=== PATIENT | male | born 1965 ===

== ENCOUNTER 2019-05-29 13:44 | Outpatient (CLI) | payer OTHER, SELFPAY ==
--- NOTE | ~2019-05-29 | XR_ITS ---
EXAMINATION: XR lumbar spine 2-3V DATE: 05/29/2019 14:04 INDICATION: Left-sided sciatica. TECHNIQUE: 3 views of lumbar spine were obtained. COMPARISON: None. FINDINGS: Bone alignment is normal. Vertebral body heights are normal. There are endplate osteophytes at T11-T12. There is mildly decreased disc height at T11-T12 and L3-L4. There is multilevel mild fac et joint osteoarthritis. IMPRESSION: 1. Mild lumbar and lower thoracic spondylosis. Reviewed, dictated and finalized at location A. ING AND BAKING OPERATOR
== END 2019-05-29 13:45 | disposition home or self-care (01) ==
PROVIDERS: PCP Internal Medicine; Visit Provider Internal Medicine
DX: N43.3 Hydrocele, unspecified (principal); M54.32 Sciatica, left side
CPT/HCPCS: 72100

== ENCOUNTER 2019-05-30 13:24 | Outpatient (CLI) | payer OTHER, SELFPAY ==
--- NOTE | ~2019-05-30 | US_ITS ---
US scrotum doppler INDICATION: Testicular swelling. TECHNIQUE: Testicular sonogram utilizing grayscale and color Doppler FINDINGS: The testes are normal in size and appearance. No focal lesions are seen. The right testes measures 4.3 x 2.3 x 2.2 cm centimeters, and the left testis measures 3 x 1.8 x 2 cm cm. There is nor mal vascular flow to both testes. There is a 5 mm extratesticular calcification on the right, likely benign. The epididymis is not clearly visualized on either side. There is a large right and moderate left hydroceles. There is a left varicocele measuring 2.6 mm grea test venous diameter. IMPRESSION: 1. Bilateral hydroceles, right greater than left. 2: Left varicocele. Reviewed, dictated and finalized at location B. CONE INSPECTOR
== END 2019-05-30 13:25 | disposition home or self-care (01) ==
LOC: CHSIMG 13:25
PROVIDERS: PCP Internal Medicine; Visit Provider Internal Medicine
DX: N43.3 Hydrocele, unspecified (principal); M54.32 Sciatica, left side
CPT/HCPCS: 76870; 93976

== ENCOUNTER 2019-10-23 14:49 | Outpatient (CLI) | payer OTHER, SELFPAY ==
--- NOTE | ~2019-10-23 | XR_ITS ---
EXAMINATION: XR elbow RT min 3V DATE: 10/23/2019 15:14 INDICATION: Right elbow bump. TECHNIQUE: 4 views of right elbow were obtained. COMPARISON: None. FINDINGS: Bone alignment is normal. No fracture. Joint spaces are well maintained. There is no elbow joint effusion. There is soft tissue swelling overlying the olecranon, consistent with bursitis. IMPRESSION: 1. Olecranon bursitis. Reviewed, dictated and finalized at location A. IMPRESSION: 1. Olecranon bursitis.
== END 2019-10-23 14:50 | disposition home or self-care (01) ==
LOC: CHSIMG 14:51
PROVIDERS: PCP Internal Medicine; Visit Provider Internal Medicine
DX: R22.31 Localized swelling, mass and lump, right upper limb (principal)
CPT/HCPCS: 73080

== ENCOUNTER 2020-07-27 10:56 | Outpatient (CLI) | payer OTHER, SELFPAY | END 2020-07-27 10:57 | disposition home or self-care (01) | LOC: CHSCOVIDVC 10:57 | PROVIDERS: PCP Internal Medicine | DX: Z23 Encounter for immunization (principal) | CPT/HCPCS: 0011A; 91301 ==

== ENCOUNTER 2020-08-24 10:57 | Outpatient (CLI) | payer OTHER, SELFPAY | END 2020-08-24 10:58 | disposition home or self-care (01) | LOC: CHSCOVIDVC 10:58 | PROVIDERS: PCP Internal Medicine | DX: Z23 Encounter for immunization (principal) | CPT/HCPCS: 0012A; 91301 ==

== ENCOUNTER 2020-12-10 08:22 | Outpatient (CLI) | payer OTHER, SELFPAY ==
--- NOTE | ~2020-12-10 | XR_ITS ---
XR knee LT min 4V 12/10/2020 08:50 INDICATION: Left knee pain PROCEDURE: 4 views left knee COMPARISON: No prior studies for comparison. FINDINGS: Fracture, dislocation or subluxation is not identified. Large amount of prepatellar soft ti ssue swelling. No foreign bodies are identified. IMPRESSION: 1: Prominent prepatellar soft tissue swelling. Consider bursitis in the appropriate clinical setting. Reviewed, dictated and finalized at location A. IMPRESSION: 1: Prominent prepatellar soft tissue swelling. Consider bursitis in the appropr iate clinical setting.
== END 2020-12-10 08:23 | disposition home or self-care (01) ==
LOC: CHSIMG 08:24
PROVIDERS: PCP Internal Medicine; Visit Provider Orthopaedic Surgery
DX: M25.562 Pain in left knee (principal)
CPT/HCPCS: 73564

== ENCOUNTER 2021-04-22 15:27 | Outpatient (CLI) | payer OTHER, SELFPAY ==
--- NOTE | ~2021-04-22 | XR_ITS ---
XR lumbar spine 2-3V 04/22/2021 15:40 Indication: Back pain Procedure: 3 views lumbar spine Comparison: 05/29/2019 Findings: Vertebral body heights are maintained. No significant disc narrowing. No fracture, subluxat ion or dislocation. No evidence for spondylolisthesis. Pedicles intact. Sacral foramen are symmetric. Impression: 1: No significant abnormality of the lumbar spine. Reviewed, dictated and finalized at location B. RNATIONAL RELATIONS PROFESSOR Impression: 1: No significant abnormality of the lumbar spine.
== END 2021-04-22 15:28 | disposition home or self-care (01) ==
LOC: CHSIMG 15:29
PROVIDERS: PCP Internal Medicine; Visit Provider Internal Medicine
DX: M54.9 Dorsalgia, unspecified (principal); R10.9 Unspecified abdominal pain
CPT/HCPCS: 72100

== ENCOUNTER 2021-05-27 10:15 | Outpatient (CLI) | payer OTHER, SELFPAY ==
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
== END 2021-05-27 10:16 | disposition home or self-care (01) ==
LOC: CHSIMG 10:17
PROVIDERS: PCP Internal Medicine; Visit Provider Internal Medicine
DX: R10.9 Unspecified abdominal pain (principal)
CPT/HCPCS: 74177; Q9967

== ENCOUNTER 2021-06-11 14:10 | Outpatient (CLI) | payer OTHER, SELFPAY ==
--- NOTE | ~2021-06-11 | US_ITS ---
US arterial ankle brachial ind INDICATION: Peripheral arterial disease TECHNIQUE: Segmental pressures and plethysmographic and Doppler waveforms of the brachial and lower e xtremity arteries were obtained. COMPARISON: None. FINDINGS: Right and left brachial artery pressures of 133 mm Hg and 123 mm Hg, respectively, are concordant (no rmal difference <= 30 mmHg). The right ankle-brachial index (ANGEL) is 1.09 (normal >= 0.9-1.0). The right great toe-brachial index (TBI) is 1.02 (normal >= 0.60). The left ANGEL is 1.06. The left TBI is 0.87. IMPRESSION: 1. Normal ankle-brachial indices. Reviewed, dictated and finalized at location B.
== END 2021-06-11 14:11 | disposition home or self-care (01) ==
LOC: CHSIMG 14:11
PROVIDERS: PCP Internal Medicine; Visit Provider Internal Medicine
DX: I73.9 Peripheral vascular disease, unspecified (principal)
CPT/HCPCS: 93922

== ENCOUNTER 2021-06-13 13:08 | Outpatient (CLI) | payer OTHER, SELFPAY ==
--- NOTE | ~2021-06-13 | US_ITS ---
EXAMINATION: US soft tissue groin LT DATE: 06/13/2021 13:29 INDICATION: Lump in the left groin TECHNIQUE: Multiple grayscale and Doppler ultrasound images of the region of the palpable abnormality at the left groin were obtained. COMPARISON: CT abdomen and pelvis dated 05/27/2021 FINDINGS/IMPRESSION: 2.9 x 1.0 x 0.3 cm left inguinal lymph node with prominent central fatty hilum superficial to the lef t common femoral artery and vein at the region of concern. No other abnormal masses or fluid collecti ons identified. No evident left inguinal hernia on the prior CT. Reviewed, dictated and finalized at location A.
== END 2021-06-13 13:09 | disposition home or self-care (01) ==
LOC: CHSIMG 13:10
PROVIDERS: PCP Internal Medicine; Visit Provider Internal Medicine
DX: R22.2 Localized swelling, mass and lump, trunk (principal)
CPT/HCPCS: 76882

== ENCOUNTER 2021-07-08 15:52 | Outpatient (CLI) | payer OTHER, SELFPAY ==
--- NOTE | ~2021-07-08 | XR_ITS ---
EXAMINATION: XR hip LT 2V w AP pelvis DATE: 07/08/2021 16:10 INDICATION: Left hip pain. TECHNIQUE: An anteroposterior view of the pelvis and 2 views of left hip were obtained. COMPARISON: None. FINDINGS: Bone alignment is normal. No fracture. There is mild osteoarthritis of the hip joints. IMPRESSION: 1. Mild osteoarthritis of the hip joints. Reviewed, dictated and finalized at location A.
== END 2021-07-08 15:53 | disposition home or self-care (01) ==
LOC: CHSIMG 15:55
PROVIDERS: PCP Internal Medicine; Visit Provider Internal Medicine
DX: R10.9 Unspecified abdominal pain (principal)
CPT/HCPCS: 73502

== ENCOUNTER 2021-07-24 14:49 | Outpatient (CLI) | payer OTHER, SELFPAY ==
--- NOTE | ~2021-07-24 | US_ITS ---
EXAMINATION: US soft tissue groin LT DATE: 07/24/2021 15:07 INDICATION: Left groin pain. TECHNIQUE: Multiple grayscale and Doppler ultrasound images of the left groin were obtained. COMPARISON: Ultrasound 06/13/2021, CT abdomen and pelvis 05/27/2021 FINDINGS: There is a normal lymph node in left inguinal region. No hernia. IMPRESSION: 1. No abnormal mass or lymphadenopathy in the patient's area of concern in left groin. Reviewed, dictated and finalized at location A.
== END 2021-07-24 14:50 | disposition home or self-care (01) ==
LOC: CHSIMG 14:50
PROVIDERS: PCP Internal Medicine; Visit Provider Internal Medicine
DX: R10.30 Lower abdominal pain, unspecified (principal)
CPT/HCPCS: 76882

== ENCOUNTER 2024-11-15 16:21 | Outpatient (CLI) | payer OTHER, SELFPAY ==
--- NOTE | ~2024-11-15 | XR_ITS ---
XR elbow LT min 3V 11/15/2024 16:41 INDICATION: Recurrent left lateral epicondyle pain PROCEDURE: 4 views left elbow COMPARISON: No prior studies for comparison. FINDINGS: Fracture, dislocation or subluxation is not identified. The soft tissues appear within normal limits. No foreign bodies are identified. IMPRESSION: 1: NO ACUTE BONE OR JOINT ABNORMALITY IDENTIFIED. Reviewed, dictated and finalized at location A.
--- OUTSIDE RECORDS SUMMARY | 2024-11-15 16:25 | XMS_ITS | Clinical Summary ---
[facility] Address [address] [place] [address] Care Team Providers Care Dehydrogenation Supervisor Name Role Phone Jm Escobedo MD Primary Care Provider [phone] Allergies No known active allergies Medications rr-ly-juul-[id number]-Ca carb-vit K 18 mg iron-400 mcg-500 mg tablet Take by mouth Active FLUoxetine (PROzac) 20 mg tablet Take 20 mg by mouth daily Active FLUoxetine (PROzac) 20 mg capsule 01/09/2022 Active famotidine (PEPCID) 40 mg tablet TAKE ONE TABLET BY MOUTH DAILY 30 tablet 11 05/13/2024 Active Active Problems Problem Noted Date Diagnosed Date Personal history of colonic polyps 12/31/2022 Encounter for screening colonoscopy 12/31/2022 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 Will schedule EGD and colonoscopy. Will get all previous CTs done at outside facilities. Schedule general lbas (CBC, CMP). Follow up after. Graves disease 10/09/2021 Overview (10/09/2021): Added automatically from request for surgery [id number] Assessment & Plan (10/19/2021 10:02 AM CDT): No treatment and no medications. Will get TSH and T4 to check thyroid function. Surgical History Surgery Date Site/Laterality Comments COLONOSCOPY 01/13/2022 COLONOSCOPY 01/04/2024 Medical History Medical History Date Comments Back pain Fatigue GERD (gastroesophageal reflux disease) Graves disease 2012 Kidney stone Depression Family History Medical History Relation Name Comments Pancreatic cancer Father Heart disease Maternal Grandfather Diabetes Maternal Grandmother Diabetes Mother Heart disease Mother Hypertension Mother Thyroid cancer Sister Relation Name Status Comments Father Maternal Grandfather Maternal Grandmother Mother Sister Social History Tobacco Use Types Packs/Day Years Used Date Smoking Tobacco: Every Day Cigarettes 1 30 Smokeless Tobacco: Never Tobacco Cessation:Ready to Q uit: Not Asked; Counseling Given: Not Answered AUDIT-C Answer Date Recorded Frequency of Alcohol Consumption Not on file 01/04/2024 Q2: How many drinks containi ng alcohol do you have on a typical day when you are drinking? Patient does not drink Frequency of Binge Drinking Not on file 10/2023 Personal Safety Answer Date Recorded Have you ever been in or are you currently in a harmful physical or emotional relationship or is someone making you feel afraid or unsafe? Denies 01/04/2024 Sex and Gender Information Value Date Recorded Sex Assigned at Not on file Legal Sex Male 1:06 PM CDT Gender Identity Not on file Sexual Orientation Not on file Obstetrics History Last Filed Vital Signs Vital Sign Reading Time Taken Comments Blood Pressure 122/77 01/04/2024 12:35 PM CDT Pulse 63 01/04/2024 12:35 PM CDT Temperature 36.8 C (98.3 F) 01/04/2024 12:35 PM CDT Respiratory Rate 16 01/04/2024 12:35 PM CDT Oxygen Saturation 100% 01/04/2024 12:35 PM CDT Inhaled Oxygen Concentration - - Weight 60.8 kg (134 lb) 01/04/2024 10:17 AM CDT Height 180.3 cm (5' 11) 01/04/2024 10:17 AM CDT Body Mass Index 18.69 01/04/2024 10:17 AM CDT Plan of Treatment Health Maintenance Due Date Last Done Comments Depression Screening 1965 Hepatitis C Screening 1965 Prostate Cancer Screening-PSA 1965 DTaP/Tdap/Td Vaccine (1 - Tdap) 12/05/1978 Hepatitis B Screening 12/05/1985 Regular Well Visit/Exam 18-64 12/05/1985 Pneumococcal vaccine <65 (1 of 2 - PCV) 12/05/1986 Lung Cancer Screening 12/05/2017 Zoster Vaccine (1 of 2) 12/05/2017 Covid-19 Vaccine ( season) 2023 03/17/2021, 08/24/2020, 07/27/2020 Influenza Vaccine (#1) 2024 Colon Cancer Screening-Colonoscopy 01/03/20342023, 01/13/2022 Procedures Procedure Name Priority Date/Time Associated Diagnosis Comments COLONOSCOPY 01/04/2024 10:10 AM CDT from Last 3 Months or Most Recently Relevant to Health Maintenance Results * Colonoscopy (01/04/2024 10:10 AM CDT) Anatomical Region Laterality Modality Other Narrative Procedure Note Dank Turcios MD - 01/04/2024 10:10 AM CDT [facility] Patient Name: Kobi Irwin Procedure Date: 01/04/2024 10:10 AM Date of : 1965 Admit Type: Outpatient Age: 58 Gender: Male Attending MD: Dank Turcios M.D. Room: [facility] RO[facility] 1 Note Status: Finalized Patient Profile: This is a 58 year old male. no family h/o colon cancer. h/o polyps Procedure: Colonoscopy Indications: High risk colon cancer surveillance: Personalhistory of colonic polyps, Last colonoscopy: December 2021 Referring MD: Jm Escobedo M.D. Providers: Dank Turcios M.D. Impression: - One 4 mm polyp in the cecum, removed with a jumbo cold forceps. Resected and retrieved. - One 9 mm polyp in the sigmoid colon, removed witha cold snare. Resected and retrieved. - One 4 mm polyp in the rectum, removed with ajumbo cold forceps. Resected and retrieved. - Internal hemorrhoids. Recommendation: - Await pathology results. - Repeat colonoscopy in 3 years for surveillance. - Continue present medications. Medicines: Monitored Anesthesia Care Complications: No immediate complications. Estimated Blood Loss: Estimated blood loss: none. Procedure: Pre-Anesthesia Assessment: - Prior to the procedure, a History and Physicalwas performed, and patient medications and allergieswere reviewed. The patient's tolerance of previous anesthesia was also reviewed. The risks andbenefits of the procedure and the sedation options and risks were discussed with the patient. All questions were answered, and informed consent was obtained. Prior Anticoagulants: The patient has taken noanticoagulant or antiplatelet agents. ASA Grade Assessment: Per anesthesia note and evaluation. After reviewing the risks and benefits, the patient was deemed in satisfactory condition to undergo the procedure. The benefits, risks and alternatives of theprocedure and sedation were discussed and informed consentwas obtained. All questions were answered. Please referto the signed informed consent document in the medical record. The bowel preparation used was Miralax via split dose instruction. The bowel preparation usedwas bisacodyl tablets via split dose instruction. The scope was passed under direct vision. The Pediatric Colonoscope PCF-H190L [id number] was introducedthrough the anus and advanced to the the cecum, identifiedby appendiceal orifice and ileocecal valve. Thequality of the bowel preparation was good. Bowel prep was administered using a split dose. Findings: The perianal and digital rectal examinations were normal. The appendiceal orifice appeared normal. A 4 mm polyp was found in the cecum. The polyp was sessile. The polyp was removed with a jumbo cold forceps. Resection and retrieval were complete. The descending colon, transverse colon and ascending colon appeared normal. A 9 mm polyp was found in the sigmoid colon. The polyp was sessile.The polyp was removed with a cold snare. Resection and retrieval were complete. A 4 mm polyp was found in the rectum. The polyp was sessile. Thepolyp was removed with a jumbo cold forceps. Resection and retrieval were complete. Internal hemorrhoids were found during retroflexion. The hemorrhoids were small. Electronically signed by Dank Turcios M.D. Dank Turcios M.D. 01/04/2024 12:14:29 PM Number of Addenda: 0 Note Initiated On: 01/04/2024 10:10 AM Procedure Code(s): --- Professional --- 58497, Colonoscopy, flexible; with removal of tumor(s), polyp(s), or other lesion(s) by snare technique 31184, 59, Colonoscopy, flexible; with biopsy, single or multiple Diagnosis Code(s): --- Professional --- Z86.010, Personal history of colonic polyps K64.8, Other hemorrhoids D12.0, Benign neoplasm of cecum D12.5, Benign neoplasm of sigmoid colon D12.8, Benign neoplasm of rectum CPT copyright 2020 [employer]. All rights reserved. The codes documented in this report are preliminary and upon motorboat operator reviewmay be revised to meet current compliance requirements. Recognized by the [employer] [employer] for promoting quality in endoscopy Dank Turcios MD ENDOSCOPY PROCEDURES Final Result from Last 3 Months or Most Recently Relevant to Health Maintenance Insurance [facility] Advance Directives For more information, please contact: [phone] * Full Code (Latest Code Status on File) Date Activated Date Inactivated Comments 01/04/2024 10:26 AM 01/04/2024 4:53 PM * Full Code Date Activated Date Inactivated Comments 01/04/2024 10:26 AM 01/04/2024 10:26 AM * Full Code Date Activated Date Inactivated Comments 01/13/2022 12:48 PM 01/13/2022 8:35 PM * Full Code Date Activated Date Inactivated Comments 01/13/2022 12:48 PM 01/13/2022 12:48 PM Care Teams Dehydrogenation Supervisor Relationship Specialty Start Date End Date Jm Escobedo MD PCP - General Internal Medicine 06/11/21
--- OUTSIDE RECORDS SUMMARY | 2024-11-15 16:25 | XMS_ITS | Clinical Summary ---
Author Organization [facility] Address [address] [place] [address] Care Team Providers Care Needle Punch Machine Operator Name Role Phone Unavailable Primary Care Provider Unavailabl e Social History Tobacco Use Types Packs/Day Years Used Date Smoking Tobacco: Never Assessed Sex and Gender Information Value Date Recorded Sex Assigned at Not on file Legal Sex Male 9:05 PM CDT Gender Identity Not on file Sexual Orientation Not on file Plan of Treatment Health Maintenance Due Date Last Done Comments Colorectal Cancer Screening Colonoscopy (10 Years) 1965 Annual Physical 12/05/1970 Hepatitis C 12/05/1985 DTaP, Tdap and Td Vaccines ( 1 - Tdap) 12/05/1986 Hepatitis B Vaccines (1 of 3 - 19+ 3-dose series) 12/05/1986 Pneumococcal Vaccine: 50+ Ye ars (1 of 1 - PCV) 12/05/2017 Zoster Vaccines (1 of 2) 12/05/2017 COVID-19 Vaccine (2023-2 5 season) 2023 Meningococcal B Vaccine Aged Out No l onger eligible based on patient's age to complete this topic Meningococcal Vaccine Aged Out No clarence sue eligible based on patient's age to complete this topic RSV Immunizations Under 20 Months Aged Out No longer eligible based on patient's age to complete this topic
== END 2024-11-15 16:22 | disposition home or self-care (01) ==
PROVIDERS: PCP Internal Medicine; Visit Provider Internal Medicine
DX: M25.522 Pain in left elbow (principal)
CPT/HCPCS: 73080